=== PATIENT | female | born 1970 | race Caucasian/White ===

== ENCOUNTER 2016-12-11 09:35 | Day surgery (SDC) | payer MEDICARE, MEDICAID ==
[~2016-12-11] VITALS: Ht 152.4 cm; Wt 54.0 kg
[~2016-12-11 09:35] MED LIST: ATOR1TAB21 PO; BACL10TA2 PO; BACL1TAB8 GT; CALCTAB68 PO; GABA800T PO; IBUP80TA PO; OXYC10TA12 PO; PARO10TA3 PO; PARO40TA3 PO; TRAZ50TA11 PO; VANCOMYCIN HCL 1,000 MG, VIAL MATE ADAPTER 1 EACH in D5W 250 ML IV ONE
[2016-12-11] MEDS ORDERED: PROPOFOL 200 MG/20 ML VIAL As Ordered ONE ×2 (10:35→14:45)
[2016-12-11] MEDS ORDERED: SUCCINYLCHOLINE 100 MG/5 ML SYRINGE (J0330) As Ordered ONE (10:35)
[2016-12-11] MEDS ORDERED: LIDOCAINE 2% INJ 100 MG/5 ML SDV (FOR ANES.) As Ordered ONE (10:35)
[2016-12-11] MEDS ORDERED: dexameTHASONE 4 MG/ML 1ML VIAL (J1100) As Ordered ONE (10:35)
[2016-12-11] MEDS ORDERED: ROCURONIUM BROMIDE 50 MG/5 ML VIAL/SYRINGE As Ordered ONE (10:35)
[2016-12-11] MEDS ORDERED: fentaNYL 250 MCG/5 ML INJECTION (J3010) As Ordered ONE (10:36)
[2016-12-11] MEDS ORDERED: MIDAZOLAM INJ 2 MG/2 ML VIAL (J2250) As Ordered ONE (10:37)
[2016-12-11] MEDS ORDERED: LR 1,000 ML IV ONE (11:15)
[2016-12-11] MEDS ORDERED: VANCOMYCIN 1000 MG/20 ML VIAL (J3370) As Ordered ONE (12:01)
[2016-12-11] MEDS ORDERED: PROPOFOL 500 MG/50 ML VIAL As Ordered ONE (12:12)
[2016-12-11] MEDS ORDERED: REMIFENTANIL 1MG 3ML VIAL As Ordered ONE (12:13)
[2016-12-11] MEDS ORDERED: VANCOMYCIN HCL 1,000 MG, VIAL MATE ADAPTER 1 EACH in D5W 250 ML IV ONE (12:15)
[2016-12-11] MEDS ORDERED: BACITRACIN PWD 50,000 UNITS VIAL As Ordered ONE (12:48)
[2016-12-11] MEDS ORDERED: BUPIVACAINE HCL 0.5% 10 ML VIAL As Ordered ONE (12:48)
[2016-12-11] MEDS ORDERED: BACITRACIN OINT 30GM As Ordered ONE (12:48)
[2016-12-11] MEDS ORDERED: BUPIVACAINE LIPOSOME/PF 1.3% 20 ML VIAL (13.3MG/ML)(EXPAREL) As Ordered ONE (12:48)
[2016-12-11] MEDS ORDERED: THROMBIN SOLN 20,000 UNITS KIT As Ordered ONE (12:48)
[2016-12-11] MEDS ORDERED: ePHEDrine SULFATE 25 MG/5 ML(5MG/ML) SYRINGE As Ordered ONE (13:39)
[2016-12-11] MEDS ORDERED: HYDROmorphone HCL 2 MG/ML 1ML VIAL (J1170) As Ordered ONE (14:21)
[2016-12-11] MEDS ORDERED: ONDANSETRON 4MG/2ML VIAL (J2405) As Ordered ONE (14:21)
[2016-12-11] MEDS ORDERED: fentaNYL 100 MCG/2 ML INJECTION (J3010) IV PRN (16:30)
[2016-12-11] MEDS ORDERED: ACETAMINOPHEN TAB 650MG DOSE (2X325MG) PO PRN (16:30)
[2016-12-11] MEDS ORDERED: NORCO, ANEXSIA 5/325MG TABLET (HYDROcodone/ACETAMINOPHEN) PO PRN (16:30)
[2016-12-11] MEDS ORDERED: PERCOCET 5MG/325MG TAB PO PRN (16:30)
[2016-12-11] MEDS ORDERED: ONDANSETRON 4MG/2ML VIAL (J2405) IV PRN ×2 (16:30)
[2016-12-11] MEDS ORDERED: LR 1,000 ML IV SCH (16:30)
[2016-12-11 17:10] VITALS: BP 142/79
--- NOTE | 2016-12-11 18:08 | REP ---
C-ARM VIEW CHEST: A C-Arm view of the chest is performed during placement of a dorsal column stimulator. Leads are seen in the midthoracic region. 32 seconds of fluoroscopy time utilized. Signed by Douglas Porras MD 12/12/2016 05:53 P
--- NOTE | 2016-12-11 18:15 | ROOPDOC ---
[facility] Report Of Operation Report of Operation DATE OF SURGERY: 12/11/2016 SURGEON: Dr. Suresh Clemente CONTINUOUS CHURN BUTTERMAKER: ALF Baker PREOPERATIVE DIAGNOSIS: Intractable back and right leg pain. POSTOPERATIVE DIAGNOSIS: Same PROCEDURE PERFORMED: 1. Partial bilateral laminectomy T8-T9. 2. Insertion of epidural spinal cord stimulator at T7 ([employer] 32, [employer]). 3. Electronic programming and interrogation of battery analysis ([employer], [employer]). 4. Subcutaneous implantation of pulse stimulator through separate incision. 5. lntra-operative use of C-arm fluoroscopy. 6. Electrophysiological monitoring of somatosensory and central motor evoked potentials of upper and lower extremities ANESTHESIA: GETA. ESTIMATED BLOOD LOSS: 100 cc. FINDINGS : Normal dura of thoracic spinal cord. DRAINS: 0 COMPLICATIONS: None. DISPOSITION: Stable to the PACU. INDICATIONS FOR THE PROCEDURE HISTORY: Mrs. Rufina Ragsdale is a 46 y/o F with signs, symptoms and radiographic evidence of intractable back pain and history of several L-spine surgeries with instrumentation, prior SCS implantation and removal. She has been treated with ( physical therapy, multiple pain medications, nerve blocks) with failure to address the symptomatology and decided to undergo insertion of a spinal cord stimulator. She underwent successful trial placement by [facility] and wished to have a permanent SCS implanted. SURGICAL RISKS: The patient and her family were well apprised of all objectives, benefits, risks and potential complications of the procedure, including but not limited to : worsening of current status, the possible need for further procedures, the risk of infection, headaches, CSF leak, possible spinal nerve injury resulting in paralysis, infection, injury to major vessels causing hemorrhage, stroke, loss of language function, coma and even . No assurance was given whether symptoms would improve following the procedure. The surgery is technically difficult procedure and despite the significant discomfort for the patient and the best effort of the physician, the surgery may be unsuccessful or may need to be aborted. Informed consent was obtained and secured in the chart after the patient and family voiced understanding of these risks and decided to proceed with the operation. DESCRIPTION OF THE PROCEDURE The patient was transferred to the operating room. He was given preoperative prophylactic IV antibiotics. ANESTHESIA: The patient was sedated and intubated without difficulty by the anesthesia service. Eyes were taped shut after ointment was applied to prevent corneal abrasion. A Rl Hugger was placed over the upper body to maintain control of core body temperature. The electrophysiology monitoring team inserted needles in their proper locations and baseline SSEPs and motor-evoked potentials were obtained. POSITIONING: The patient was turned prone on gel pads of Juarez table. All pressure points were carefully padded. OPERATIVE TECHNIQUE: The patient was prepped and draped in the standard sterile fashion. The C-arm fluoroscopy was draped and brought in to the operative field and the T8-T9 was identified. The skin was subsequently opened sharply with a # 15 scalpel blade. Dissection was carried down superiorly and inferiorly in the midline to expose supraspinous ligament and laminas. The musculature was elevated subperiosteally to expose the facets bilaterally with electrocautery and Vital elevator. Hemostasis was achieved. Self-retaining retractors were then inserted. Spinal processes resection and partial laminectomy of T8 and T9 levels were performed. An ultrasound bone dissector Bone Scalpel was used to remove T8and T9 laminas. The ligamentum flavum was then easily removed with Kerrison rongers. Epidural space was dissected with plastic dissector from [employer]. Bleeding from epidural veins has been controlled bipolar cautery. 32-contact chest painting leader has been inserted to the level of middle T7 vertebra into the epidural space without difficulty. Placement has been confirmed by C-arm fluoroscopy. The skin over the left flank an approximately 5 cm incision performed with a # 15 scalpel blade. A pocket was developed for placement of the battery pulse generator. Utilizing a sharp trocar, a plastic cannula was brought from the spinal incision down into the flank incision; left in place and the electrodes passed through. The electrodes were then connected to the battery pulse. At this point, the pulse generator c programmer was brought near the operative field. The battery pulse generator was interrogated intraoperatively and programmed. The stimulator was set wiressly. The battery pulse generator was then secured to the fascia utilizing absorbable suture. In the spine incision, the electrodes were secured to the fascial edge silk suture as well. The fascial planes and the muscles were approximated utilizing 0 polyglactin synthetic absorbable suture Vicryl. The wound was irrigated copiously with antibiotic saline solution. The skin was re-approximated with interrupted 2.0 Stratafix suture. The skin was then closed with Dermabond. The flank wound was also copiously irrigated with antibiotic saline solution and closed in layers utilizing 2.0 Stratafix suture. The skin was then closed with Dermabond. Utilizing the pulse generator c programmer, verification was obtained at the end of the case to ensure adequate output reading from the newly placed device. All sponge counts, needle counts and instrument counts were correct at the end of the case times two. The electrophysiological monitoring remained stable from baseline through the end of the procedure. The patient tolerated the procedure well, without any complications and was transferred in stable condition to the recovery room. SURESH CLEMENTE MD Dec 11, 2016 18:15
[2016-12-11] MEDS: MORPHINE 4 MG/ML 1ML SYRINGE IV PRN (18:33)
[2016-12-11] MEDS: KCL 20MEQ IN D5/0.45NS 1000ML 1,000 ML IV SCH (18:34)
[2016-12-11 20:00] VITALS: BP 152/77
[2016-12-11] MEDS: CARISOPRODOL 350 MG TAB PO SCH (20:06)
[2016-12-11] MEDS: NORCO, ANEXSIA 5/325MG TABLET (HYDROcodone/ACETAMINOPHEN) PO PRN (20:07)
[2016-12-11 21:00] VITALS: BP 144/62
[2016-12-11] MEDS ORDERED: CEFUROXIME SODIUM 750 MG in D5W MINI-BAG PLUS 50 ML IV SCH (21:00)
[2016-12-11 22:00] VITALS: BP 140/65
[2016-12-12] MEDS ORDERED: VANCOMYCIN HCL 1,000 MG, VIAL MATE ADAPTER 1 EACH in D5W 250 ML IV ONE (01:00)
[2016-12-12 02:00] VITALS: BP 137/69
[2016-12-12] MEDS: NORCO, ANEXSIA 5/325MG TABLET (HYDROcodone/ACETAMINOPHEN) PO PRN ×3 (02:22→15:15)
[2016-12-12] MEDS: KCL 20MEQ IN D5/0.45NS 1000ML 1,000 ML IV SCH ×2 (02:23→12:53)
[2016-12-12] MEDS: MORPHINE 4 MG/ML 1ML SYRINGE IV PRN ×2 (05:47→10:16)
[2016-12-12 06:00] VITALS: BP 142/76
[2016-12-12 06:38] LABS: CREATININE FOR GFR 0.52 MG/DL (0.55-1.02); GLOMERULAR FILTRATION RATE > 60.0 (>58)
[2016-12-12] MEDS: CARISOPRODOL 350 MG TAB PO SCH ×2 (09:12→15:15)
[2016-12-12] MEDS ORDERED: CARI350T PO (16:13)
== END 2016-12-12 17:00 | disposition home or self-care (01) ==
LOC: M SDC 09:35 → M MS5PR 17:10 → M SDC 12-12 17:00
PROVIDERS: ATTEND Neurological Surgery
DX: M96.1 Postlaminectomy syndrome, not elsewhere classified (principal); M79.604 Pain in right leg; M54.16 Radiculopathy, lumbar region; E78.5 Hyperlipidemia, unspecified; F41.9 Anxiety disorder, unspecified; F32.9 Major depressive disorder, single episode, unspecified; Z86.73 Personal history of transient ischemic attack (TIA), and cerebral infarction without residual deficits; F17.210 Nicotine dependence, cigarettes, uncomplicated; Z88.0 Allergy status to penicillin; Z79.899 Other long term (current) drug therapy
CPT/HCPCS: 36415; 63655; 63685; 76000; 82565; 96361; 96365; 96366; 96375; C1767; C1820; J0330; J1100; J1170; J2250; J2405; J3010; J3370; L9900